=== PATIENT | male | born 1970 | race Caucasian/White ===

== ENCOUNTER 2018-04-12 08:31 | Emergency (ER) | payer MEDICAID ==
[~2018-04-12] VITALS: Ht 185.4 cm; Wt 91.8 kg
[2018-04-12] MEDS ORDERED: ketorolac trometh inj. 60 MG/2 ML VIAL IM ONE (08:55)
[2018-04-12] MEDS ORDERED: HYDROcodone/acetaminophen 5mg/325mg tablet PO ONE (08:55)
[2018-04-12] MEDS ORDERED: HYDR-3965 PO (09:24)
[2018-04-12 09:38] VITALS: BP 134/97
== END 2018-04-12 09:40 | disposition home or self-care (01) ==
LOC: ER 08:32
DX: S22.32XA Fracture of one rib, left side, initial encounter for closed fracture (principal); Z79.899 Other long term (current) drug therapy; W18.39XA Other fall on same level, initial encounter; Y93.89 Activity, other specified; Y92.89 Other specified places as the place of occurrence of the external cause; Y99.8 Other external cause status
CPT/HCPCS: 71100; 96372; 99284; J1885

== ENCOUNTER 2019-03-08 08:22 | Inpatient (IN) | payer MEDICAID, OTHER ==
[~2019-03-08] VITALS: Ht 185.4 cm; Wt 93.2 kg
[2019-03-08] MEDS ORDERED: normal saline 1000ML IV soln IVB ONE (08:40)
[2019-03-08] MEDS ORDERED: LIDOcaine 1% w/EPI 1:200,000 injection 10mL vial IM ONE (09:20)
[2019-03-08] MEDS ORDERED: mupirocin 2% ointment 22GM TP ONE (09:20)
[2019-03-08] MEDS ORDERED: TETanus/Pertussis (Acell)/Diphther VAC/PF (Tdap-Adult) 0.5ml syringe IM ONE (09:20)
[2019-03-08] MEDS ORDERED: LIDOcaine 1% W/epiNEPHrine 1:100,000 20ml vial IJ ONE (09:20)
[2019-03-08 09:25] LABS: BASOPHILS % (AUTO) 0.2 % (0-1); EOSINOPHILS # (AUTO) 0.1 X10'3 (0-0.9); EOSINOPHILS % (AUTO) 0.4 % (0-6); HEMATOCRIT 42.4 % (42.0-52.0); HEMOGLOBIN 14.5 g/dl (14.0-17.9); LYMPHOCYTES % (AUTO) 5.7 % (21-51); MEAN CORPUSCULAR HEMOGLOBIN 31.2 PG (27.0-31.0); MEAN CORPUSCULAR HGB CONC 34.1 g/dL (33.0-36.5); MEAN CORPUSCULAR VOLUME 91.3 FL (78-98); MEAN PLATELET VOLUME 8.3 FL (7.4-10.4); MONOCYTES % (AUTO) 5.6 % (2-12); NEUTROPHILS # (AUTO) 15.2 X10'3 (1.8-7.7); NEUTROPHILS % (AUTO) 88.1 % (42-75); PLATELET COUNT 295 X10'3 (140-440); RED BLOOD COUNT 4.65 X10'6 (4.70-6.10); RED CELL DISTRIBUTION WIDTH 12.9 % (11.5-14.5); WHITE BLOOD COUNT 17.3 X10'3 (4.5-11.0)
[2019-03-08 09:35] LABS: PARTIAL THROMBOPLASTIN TIME 27 SECONDS (22-32)
[2019-03-08 09:42] LABS: ALANINE AMINOTRANSFERASE 24 U/L (12-78); ALBUMIN 3.4 G/DL (3.4-5.0); ALBUMIN/GLOBULIN RATIO 0.8 (1.1-1.5); ALKALINE PHOSPHATASE 146 IU/L (46-116); ANION GAP 11 (8-16); ASPARTATE AMINO TRANSFERASE 13 U/L (10-37); BILIRUBIN,TOTAL 0.5 MG/DL (0.1-1.0); BLOOD UREA NITROGEN 12 MG/DL (7-18); CHLORIDE 98 MMOL/L (99-107); MAGNESIUM 1.9 MG/DL (1.5-2.4); POTASSIUM 4.3 MMOL/L (3.5-5.1); SODIUM 134 MMOL/L (135-145); TOTAL CARBON DIOXIDE 25.5 MMOL/L (24-32); TOTAL PROTEIN 7.7 G/DL (6.4-8.2); eGFR 64 ML/MIN
[2019-03-08 10:00] LABS: GLUCOSE 572 MG/DL (70-104)
[2019-03-08] MEDS ORDERED: glucagon, human recombinant 1mg kit SUBCUT PRN (11:15)
[2019-03-08] MEDS ORDERED: magnesium 2GM in 50ml NS 50 ML IV PRN (11:15)
[2019-03-08] MEDS ORDERED: mag hydrox/Alum hydrox/simeth 30ml oral suspension PO PRN (11:15)
[2019-03-08] MEDS ORDERED: magnesium 4gm in 100ml NS 100 ML IV PRN (11:15)
[2019-03-08] MEDS ORDERED: potassium Cl 20 mEq SR tablet PO PRN ×2 (11:15)
[2019-03-08] MEDS ORDERED: magnesium Cl slow-release 64mg tablet PO PRN (11:15)
[2019-03-08] MEDS ORDERED: morphine 2 MG/ML inj. syringe IV PRN (11:15)
[2019-03-08] MEDS ORDERED: dextrose 50%-water 50ml dispensing syringe IV PRN ×2 (11:15)
[2019-03-08] MEDS ORDERED: MESSAGE TO PHARMACY PO ONE (11:15)
[2019-03-08] MEDS ORDERED: potassium CL 10mEq/100ml bag 100 ML IV PRN ×2 (11:15)
[2019-03-08] MEDS ORDERED: ondansetron/PF 4mg/2ml inj IV PRN (11:15)
[2019-03-08] MEDS ORDERED: acetaminophen 325mg tablet PO PRN (11:15)
[2019-03-08] MEDS ORDERED: dextrose ORAL solution 15 GM/59 ML bottle PO PRN ×2 (11:15)
[2019-03-08] MEDS ORDERED: dronabinol 2.5mg capsule PO PRN (11:50)
--- NOTE | 2019-03-08 11:58 | NUR ---
Report from Gene GIL in the ER
[2019-03-08 12:59] LABS: HEMOGLOBIN A1C 10.2 % (4.5-6.2)
[2019-03-08 13:00] VITALS: BP 159/88
[2019-03-08] MEDS ORDERED: gadobutrol 10mmol/10ml inj. IV ONE ×2 (13:04)
[2019-03-08 13:11] VITALS: BP 159/88
[2019-03-08] MEDS: normal saline 1000ml 1,000 ML IV SCH (13:24)
[2019-03-08] MEDS: levoFLOXACIN-Levaquin 750MG/D5 150 ML IV SCH (13:25)
[2019-03-08] MEDS: oxyCODONE IR 5mg (immed. release) tablet PO PRN ×2 (13:53→19:39)
[2019-03-08] MEDS: piperacillin/tazo 4.5gm/100ml 100 ML IV SCH ×2 (15:48→17:44)
[2019-03-08] MEDS: morphine 2 MG/ML inj. syringe IV PRN ×2 (16:37→21:00)
[2019-03-08 18:00] VITALS: BP 130/85
--- NOTE | 2019-03-08 18:16 | NUR ---
Problems reprioritized. Patient report given, questions answered & plan of care reviewed with Peewee GIL.
--- NOTE | 2019-03-08 19:00 | NUR ---
Patient in room ORTHO 4012. I have received report from Devin GIL and had the opportunity to ask questions and assume patient care.
[2019-03-08] MEDS: insulin Lispro (HumaLOG) vial - multi-dose SQ SCH (19:35)
[2019-03-08] MEDS: insulin glargine (Lantus) pen - multi-dose SQ SCH (21:24)
[2019-03-08 22:00] VITALS: BP 153/92
[2019-03-08] MEDS ORDERED: NO HOME MEDS (22:55)
[2019-03-09] MEDS: piperacillin/tazo 4.5gm/100ml 100 ML IV SCH ×3 (00:18→16:17)
[2019-03-09] MEDS: normal saline 1000ml 1,000 ML IV SCH ×3 (00:39→22:46)
[2019-03-09 06:00] VITALS: BP 114/80
--- NOTE | 2019-03-09 06:31 | NUR ---
report received from LOUISE Vides.
[2019-03-09] MEDS: enoxaparin 40mg/0.4ml syringe SQ SCH (07:07)
[2019-03-09] MEDS: oxyCODONE IR 5mg (immed. release) tablet PO PRN ×2 (07:07→14:52)
[2019-03-09] MEDS: levoFLOXACIN-Levaquin 750MG/D5 150 ML IV SCH (07:08)
[2019-03-09] MEDS: K and/or MAG REPLACEMENT MC SCH (07:24)
[2019-03-09 09:12] LABS: BASOPHILS % (AUTO) 0.1 % (0-1); EOSINOPHILS # (AUTO) 0.2 X10'3 (0-0.9); EOSINOPHILS % (AUTO) 1.2 % (0-6); HEMOGLOBIN 13.3 g/dl (14.0-17.9); LYMPHOCYTES # (AUTO) 0.8 X10'3 (1.1-4.8); LYMPHOCYTES % (AUTO) 5.5 % (21-51); MEAN CORPUSCULAR HEMOGLOBIN 30.9 PG (27.0-31.0); MEAN CORPUSCULAR VOLUME 90.7 FL (78-98); MEAN PLATELET VOLUME 8.3 FL (7.4-10.4); MONOCYTES # (AUTO) 1.1 X10'3 (0-0.9); MONOCYTES % (AUTO) 8.1 % (2-12); NEUTROPHILS # (AUTO) 11.8 X10'3 (1.8-7.7); NEUTROPHILS % (AUTO) 85.1 % (42-75); PLATELET COUNT 259 X10'3 (140-440); RED CELL DISTRIBUTION WIDTH 12.8 % (11.5-14.5); WHITE BLOOD COUNT 13.8 X10'3 (4.5-11.0)
[2019-03-09] MEDS: insulin Lispro (HumaLOG) vial - multi-dose SQ SCH ×2 (09:23→14:46)
[2019-03-09 09:30] LABS: ALANINE AMINOTRANSFERASE 28 U/L (12-78); ALBUMIN 2.5 G/DL (3.4-5.0); ALBUMIN/GLOBULIN RATIO 0.6 (1.1-1.5); ALKALINE PHOSPHATASE 107 IU/L (46-116); ANION GAP 10 (8-16); ASPARTATE AMINO TRANSFERASE 21 U/L (10-37); BLOOD UREA NITROGEN 9 MG/DL (7-18); BUN/CREATININE RATIO 10.1 (5.4-32.0); CALCIUM 9.2 MG/DL (8.5-10.1); CHLORIDE 103 MMOL/L (99-107); CREATININE 0.89 MG/DL (0.60-1.10); GLUCOSE 197 MG/DL (70-104); SODIUM 139 MMOL/L (135-145); TOTAL CARBON DIOXIDE 25.9 MMOL/L (24-32); TOTAL PROTEIN 6.5 G/DL (6.4-8.2); eGFR > 90 ML/MIN
[2019-03-09] MEDS ORDERED: FLU VACC QS2019-20 36MOS UP/PF 60 MCG/0.5 ML SYRINGE IMVAC ONE (10:00)
[2019-03-09 10:20] LABS: BILIRUBIN,TOTAL 0.5 MG/DL (0.1-1.0)
[2019-03-09] MEDS: morphine 2 MG/ML inj. syringe IV PRN ×2 (12:06→20:33)
--- NOTE | 2019-03-09 13:38 | NUR ---
DM Consult: A1C 10.2. Pt admit w/ L knee prepatella bursitis to OR as soon as possible per surgeon note. Pt has been educated on increased infection rate r/t uncontrolled DM per MD note. Will need DM and high protein eds once stable post-op. No home DM meds per EMR. Will continue to monitor. Rec: 1. continue carb controlled diet per MD 2. monitor for ONS needs post-op 3. DM and high protein eds once stable post-op 4. MVI for wound healing post-op 5. wt per rx Addendum: 03/09/19 at [address] Amended: Links added.
[2019-03-09 17:00] VITALS: BP 133/87
--- NOTE | 2019-03-09 18:10 | NUR ---
Received report from Ainsley, student nurse with [employer]. Patient is awake and alert on room air, in no apparent distress. Call light and items of frequent use within reach. Will continue to monitor.
--- NOTE | 2019-03-09 18:14 | NUR ---
report given to LOUISE Hsu. pt stable.
--- NOTE | 2019-03-09 19:05 | NUR ---
Patient refused dinner tray; verbalized that he does not have an appetite at the moment. Therefore, patient was not covered with insulin for either nutritional or correctional as he does not meet the criteria.
[2019-03-09] MEDS: insulin glargine (Lantus) pen - multi-dose SQ SCH (20:42)
[2019-03-09 22:00] VITALS: BP 127/90
[2019-03-10] MEDS: piperacillin/tazo 4.5gm/100ml 100 ML IV SCH ×2 (00:07→07:44)
[2019-03-10] MEDS: normal saline 1000ml 1,000 ML IV SCH ×3 (03:15→21:11)
--- NOTE | 2019-03-10 06:04 | NUR ---
Problems reprioritized. Patient report given, questions answered & plan of care reviewed with LOUISE Gloria.
[2019-03-10] MEDS: oxyCODONE IR 5mg (immed. release) tablet PO PRN ×3 (06:26→19:01)
[2019-03-10 06:30] VITALS: BP 147/89
--- NOTE | 2019-03-10 06:30 | NUR ---
Patient in room ORTHO 4012. I have received report from night RN and had the opportunity to ask questions and assume patient care.
--- NOTE | 2019-03-10 06:33 | NUR ---
Patient in room ORTHO 4012. I have received report from Juani and had the opportunity to ask questions and assume patient care.
[2019-03-10 07:04] LABS: BASOPHILS % (AUTO) 0.3 % (0-1); EOSINOPHILS # (AUTO) 0.2 X10'3 (0-0.9); EOSINOPHILS % (AUTO) 1.4 % (0-6); HEMATOCRIT 40.8 % (42.0-52.0); HEMOGLOBIN 13.7 g/dl (14.0-17.9); LYMPHOCYTES # (AUTO) 0.8 X10'3 (1.1-4.8); LYMPHOCYTES % (AUTO) 7.2 % (21-51); MEAN CORPUSCULAR HEMOGLOBIN 30.9 PG (27.0-31.0); MEAN CORPUSCULAR HGB CONC 33.7 g/dL (33.0-36.5); MEAN CORPUSCULAR VOLUME 91.8 FL (78-98); MONOCYTES # (AUTO) 0.9 X10'3 (0-0.9); MONOCYTES % (AUTO) 8.1 % (2-12); NEUTROPHILS # (AUTO) 9.5 X10'3 (1.8-7.7); PLATELET COUNT 291 X10'3 (140-440); RED BLOOD COUNT 4.44 X10'6 (4.70-6.10); RED CELL DISTRIBUTION WIDTH 12.9 % (11.5-14.5); WHITE BLOOD COUNT 11.5 X10'3 (4.5-11.0)
[2019-03-10 07:22] LABS: ALANINE AMINOTRANSFERASE 29 U/L (12-78); ALBUMIN 2.6 G/DL (3.4-5.0); ALBUMIN/GLOBULIN RATIO 0.6 (1.1-1.5); ALKALINE PHOSPHATASE 110 IU/L (46-116); ANION GAP 11 (8-16); ASPARTATE AMINO TRANSFERASE 16 U/L (10-37); BILIRUBIN,TOTAL 0.5 MG/DL (0.1-1.0); BLOOD UREA NITROGEN 7 MG/DL (7-18); BUN/CREATININE RATIO 7.9 (5.4-32.0); CALCIUM 9.4 MG/DL (8.5-10.1); CHLORIDE 102 MMOL/L (99-107); CREATININE 0.89 MG/DL (0.60-1.10); GLUCOSE 185 MG/DL (70-104); MAGNESIUM 1.9 MG/DL (1.5-2.4); POTASSIUM 3.8 MMOL/L (3.5-5.1); SODIUM 140 MMOL/L (135-145); TOTAL CARBON DIOXIDE 27.4 MMOL/L (24-32); TOTAL PROTEIN 7.1 G/DL (6.4-8.2); eGFR > 90 ML/MIN
[2019-03-10] MEDS: levoFLOXACIN-Levaquin 750MG/D5 150 ML IV SCH (07:44)
[2019-03-10] MEDS: K and/or MAG REPLACEMENT MC SCH (08:00)
[2019-03-10] MEDS: insulin Lispro (HumaLOG) vial - multi-dose SQ SCH ×2 (08:56→19:06)
[2019-03-10] MEDS: enoxaparin 40mg/0.4ml syringe SQ SCH (09:05)
[2019-03-10 10:06] VITALS: BP 126/96
[2019-03-10 10:29] VITALS: BP 126/96
--- NOTE | 2019-03-10 12:00 | NUR ---
Problems reprioritized. Patient report given, questions answered & plan of care reviewed with
--- NOTE | 2019-03-10 12:09 | NUR ---
Student Medication Administration:For this medication-pass time frame 0187-2916, all medications were reviewed, administered and documented per hospital policy by Tiffany Dunham. Student documentation:I have reviewed interventions, assessments performed and documented by Tiffany Dunham. Students learning [employer] and some duplicate charting and telemetry information documented in error.
--- NOTE | 2019-03-10 12:22 | NUR ---
Problems reprioritized. Patient report given to Juani, questions answered & plan of care reviewed with .
[2019-03-10 13:02] LABS: C-REACTIVE PROTEIN 15.73 MG/DL (0.0-0.5)
--- NOTE | 2019-03-10 15:27 | NUR ---
F/u: Pt seen by RD for written/verbal DM/high protein eds w/ RD contact information provided. Pt reports lots of stress s/p divorce and moving from [place] but now open to better GLU control methods. Pt states left glucometer in [place]; RD notified RN since pt needs new one upon d/c. Pt agrees to double proteins TIDWM; dietary notified. Addendum: 03/10/19 at [address] Amended: Links added.
[2019-03-10 18:00] VITALS: BP 136/90
[2019-03-10] MEDS: DOXYCYCLINE 100MG CAPSULE PO SCH (18:12)
[2019-03-10] MEDS: lactobacillus rhamnosus 10,000 MMU CELLS/CAPSULE PO SCH (19:10)
[2019-03-10] MEDS: insulin glargine (Lantus) pen - multi-dose SQ SCH (21:13)
[2019-03-10 22:00] VITALS: BP 144/98
[2019-03-11] MEDS: oxyCODONE IR 5mg (immed. release) tablet PO PRN ×2 (04:35→12:06)
[2019-03-11 05:46] LABS: BASOPHILS % (AUTO) 0.3 % (0-1); EOSINOPHILS # (AUTO) 0.2 X10'3 (0-0.9); EOSINOPHILS % (AUTO) 1.8 % (0-6); HEMATOCRIT 40.5 % (42.0-52.0); HEMOGLOBIN 14.2 g/dl (14.0-17.9); LYMPHOCYTES # (AUTO) 1.1 X10'3 (1.1-4.8); LYMPHOCYTES % (AUTO) 10.3 % (21-51); MEAN CORPUSCULAR HEMOGLOBIN 31.6 PG (27.0-31.0); MEAN CORPUSCULAR HGB CONC 35.2 g/dL (33.0-36.5); MEAN CORPUSCULAR VOLUME 89.8 FL (78-98); MEAN PLATELET VOLUME 7.9 FL (7.4-10.4); MONOCYTES # (AUTO) 1.1 X10'3 (0-0.9); MONOCYTES % (AUTO) 10.1 % (2-12); NEUTROPHILS # (AUTO) 8.4 X10'3 (1.8-7.7); NEUTROPHILS % (AUTO) 77.5 % (42-75); PLATELET COUNT 321 X10'3 (140-440); RED BLOOD COUNT 4.52 X10'6 (4.70-6.10); RED CELL DISTRIBUTION WIDTH 12.8 % (11.5-14.5); WHITE BLOOD COUNT 10.9 X10'3 (4.5-11.0)
[2019-03-11 06:11] LABS: ALANINE AMINOTRANSFERASE 28 U/L (12-78); ALBUMIN 2.6 G/DL (3.4-5.0); ALBUMIN/GLOBULIN RATIO 0.6 (1.1-1.5); ALKALINE PHOSPHATASE 109 IU/L (46-116); ANION GAP 10 (8-16); ASPARTATE AMINO TRANSFERASE 15 U/L (10-37); BILIRUBIN,TOTAL 0.4 MG/DL (0.1-1.0); BLOOD UREA NITROGEN 10 MG/DL (7-18); BUN/CREATININE RATIO 10.3 (5.4-32.0); CHLORIDE 104 MMOL/L (99-107); CREATININE 0.97 MG/DL (0.60-1.10); GLUCOSE 157 MG/DL (70-104); MAGNESIUM 1.9 MG/DL (1.5-2.4); POTASSIUM 3.9 MMOL/L (3.5-5.1); SODIUM 142 MMOL/L (135-145); TOTAL CARBON DIOXIDE 27.9 MMOL/L (24-32); eGFR 82 ML/MIN
--- NOTE | 2019-03-11 06:22 | NUR ---
REPORT GIVEN TO LOUISE GOMEZ.
--- NOTE | 2019-03-11 06:33 | NUR ---
Patient in room ORTHO 4012. I have received report from Juani and had the opportunity to ask questions and assume patient care.
[2019-03-11 07:02] VITALS: BP 126/85
[2019-03-11] MEDS: DOXYCYCLINE 100MG CAPSULE PO SCH (07:52)
[2019-03-11] MEDS: lactobacillus rhamnosus 10,000 MMU CELLS/CAPSULE PO SCH (07:53)
[2019-03-11] MEDS: enoxaparin 40mg/0.4ml syringe SQ SCH (07:55)
[2019-03-11] MEDS: K and/or MAG REPLACEMENT MC SCH (08:00)
--- NOTE | 2019-03-11 08:46 | NUR ---
CALLED PHARMACY ABOUT FLU VACCINE, HOSPITAL HAS NO SUPPLY, WILL NON-ADMIN MEDICATION.
[2019-03-11] MEDS: insulin Lispro (HumaLOG) vial - multi-dose SQ SCH (08:54)
[2019-03-11] MEDS: normal saline 1000ml 1,000 ML IV SCH (08:56)
[2019-03-11] MEDS ORDERED: levoFLOXACIN 750MG TABLET PO SCH (11:00)
--- NOTE | 2019-03-11 11:39 | NUR ---
reassessment: Pt PO 100% meals w/ double proteins TID meeting healing needs. LBM 03/09. No nutrition concerns at this time. Will continue to monitor. Rec: 1. continue carb controlled diet per MD 2. double proteins TIDWM 3. MVI for wound healing post-op 4. wt per rx Addendum: 03/11/19 at [address] Amended: Links added.
[2019-03-11] MEDS ORDERED: LEVO750T46 PO (12:08)
[2019-03-11] MEDS ORDERED: LANTUS SQ (12:08)
[2019-03-11] MEDS ORDERED: DOXY-224 PO (12:08)
[2019-03-11] MEDS ORDERED: OXYC-658 PO (12:08)
[2019-03-11] MEDS ORDERED: INSU100V11 SQ (12:08)
--- NOTE | 2019-03-11 12:08 | NUR ---
Problems reprioritized. Patient report given, questions answered & plan of care reviewed with judith Ugarte
--- NOTE | 2019-03-11 12:21 | NUR ---
Student Medication Administration:For this medication-pass time frame [id number], all medications were reviewed, administered and documented per hospital policy by Bharathi Montilla. Student documentation:I have reviewed and agree with all interventions, assessments performed and documented by Bharathi Montilla.
== END 2019-03-11 14:00 | disposition home or self-care (01) | DRG 872 ==
LOC: ER 08:23 → ED HOLD 12:07 → ORTHO 4S 13:00
PROVIDERS: ADMIT Family Medicine; ATTEND Family Medicine
PROC: 0H9LXZZ Drainage of Left Lower Leg Skin, External Approach (ICD-10-PCS; principal; 2019-03-08)
DX: A41.9 Sepsis, unspecified organism (principal); L02.416 Cutaneous abscess of left lower limb; L03.116 Cellulitis of left lower limb; E11.65 Type 2 diabetes mellitus with hyperglycemia; M70.42 Prepatellar bursitis, left knee; Z79.4 Long term (current) use of insulin; Z83.3 Family history of diabetes mellitus
CPT/HCPCS: 10060; 36415; 71045; 73560; 73723; 80053; 82948; 83036; 83605; 83735; 84145; 85025; 85610; 85651; 85730; 86140; 87040; 87081; 90471; 93005; 96374; 99285; A9585; G0378; J1650; J1815; J1956; J2270; J2405; J2543; J7030

== ENCOUNTER 2020-05-26 12:01 | Emergency (ER) | payer MEDICAID ==
[~2020-05-26] VITALS: Ht 185.4 cm; Wt 108.0 kg
[~2020-05-26 12:01] MED LIST: DOXY-224 PO; INSU100V11 SQ; LANTUS SQ; LEVO750T46 PO; OXYC-658 PO
[2020-05-26 12:19] VITALS: BP 139/92
[2020-05-26] MEDS ORDERED: CEPH500C5 PO (14:37)
== END 2020-05-26 14:42 | disposition home or self-care (01) ==
LOC: ER 12:01
DX: L72.3 Sebaceous cyst (principal); E11.9 Type 2 diabetes mellitus without complications; Z90.89 Acquired absence of other organs; Z79.2 Long term (current) use of antibiotics; Z79.4 Long term (current) use of insulin; Z79.899 Other long term (current) drug therapy
CPT/HCPCS: 99283